=== PATIENT | female | born 1950 | race American Indian/Alaskan Native ===

== ENCOUNTER → 2017-05-30 | Outpatient (CLI) | payer OTHER ==
[~2017-05-30] MED LIST: AYGESTIN PO; CLON.5 PO; ESTRADIOL 0.05 MG/24 HR TOP; HYDCHL12.5 PO; OMEP20ER PO; PRAV20 PO
[2017-05-30 18:03] LABS: Protein, Urine Random 7.7 mg/dL (0.0-11.9)
== END | disposition home or self-care (01) ==
LOC: LAB SHORT 15:51 → OLS 15:51
PROVIDERS: Internal Medicine
DX: N18.3 Chronic kidney disease, stage 3 (moderate) (principal)
CPT/HCPCS: 82570; 84156

== ENCOUNTER → 2018-04-10 | Outpatient (CLI) | payer OTHER ==
[~2018-04-10] MED LIST changes: +ALBU90OI INH; +CLIMARA1 EACH; +Dyazide 37.5-21 EACH PO; +EXTRA STRENGTH500 MG PO; +LANS30EC PO; +Methimazole5 MG PO; +QVAR REDIHALE10.6 G1 INH; +SINUS PRESSURE-10 MG PO; +VITAMIN D22000 UNIT PO
[2018-04-12 14:12] LABS: HPV 16 Negative (Negative); HPV 18 Negative (Negative); HPV OTHER HR TYPES Negative (Negative)
== END | disposition home or self-care (01) ==
LOC: LAB 19:06 → LAB SHORT 19:06
PROVIDERS: Obstetrics & Gynecology Gynecology
DX: N89.8 Other specified noninflammatory disorders of vagina (principal); Z91.89 Other specified personal risk factors, not elsewhere classified
CPT/HCPCS: 87070; 87205; 87624; G0123

== ENCOUNTER 2018-05-02 12:44 | Day surgery (SDC) | payer OTHER ==
[~2018-05-02] VITALS: Ht 157.5 cm; Wt 73.1 kg
--- NOTE | 2018-05-02 13:34 | NUR ---
05/02/18 1334 Domitila Richardson 2 MISSED BY MA IV IN RH,RAC, VALVE 1 IN RH BY HESHAM BOUDREAUX;Leena N OT THREAD 1 LISA IV IN LW BY HESHAM BARBOSA TOW
--- NOTE | 2018-05-02 15:09 | NUR ---
05/02/18 1509 Jessica Juan V 6 CC OF SPOT USED TO [facility] LOCATION OF POLYP
== END 2018-05-02 15:40 | disposition home or self-care (01) ==
LOC: ORSCSDS 12:44
PROVIDERS: Surgery
PROC: 0DB68ZX Excision of Stomach, Via Natural or Artificial Opening Endoscopic, Diagnostic (ICD-10-PCS; principal; 2018-05-02 14:00)
PROC: 3E0H8GC Introduction of Other Therapeutic Substance into Lower GI, Via Natural or Artificial Opening Endoscopic (ICD-10-PCS; principal; 2018-05-02 14:00)
PROC: 0DBL8ZX Excision of Transverse Colon, Via Natural or Artificial Opening Endoscopic, Diagnostic (ICD-10-PCS; principal; 2018-05-02 14:00)
PROC: 0DBN8ZX Excision of Sigmoid Colon, Via Natural or Artificial Opening Endoscopic, Diagnostic (ICD-10-PCS; principal; 2018-05-02 14:00)
PROC: 0DB58ZX Excision of Esophagus, Via Natural or Artificial Opening Endoscopic, Diagnostic (ICD-10-PCS; principal; 2018-05-02 14:00)
DX: K21.9 Gastro-esophageal reflux disease without esophagitis (principal); Z86.010 Personal history of colon polyps; D12.3 Benign neoplasm of transverse colon; D12.5 Benign neoplasm of sigmoid colon; Z12.11 Encounter for screening for malignant neoplasm of colon; I10 Essential (primary) hypertension; E03.9 Hypothyroidism, unspecified; E16.2 Hypoglycemia, unspecified; J44.9 Chronic obstructive pulmonary disease, unspecified; F41.9 Anxiety disorder, unspecified; Z79.899 Other long term (current) drug therapy
CPT/HCPCS: 88305; 88342; J7120

== ENCOUNTER 2020-11-01 21:39 | Emergency (ER) | payer OTHER ==
[~2020-11-01] VITALS: Ht 160 cm; Wt 75.3 kg
== END 2020-11-02 02:18 | disposition home or self-care (01) ==
LOC: ER 21:39
DX: S16.1XXA Strain of muscle, fascia and tendon at neck level, initial encounter (principal); G89.29 Other chronic pain; M54.9 Dorsalgia, unspecified; Z88.8 Allergy status to other drugs, medicaments and biological substances; Z79.899 Other long term (current) drug therapy; V43.52XA Car driver injured in collision with other type car in traffic accident, initial encounter; Y92.488 Other paved roadways as the place of occurrence of the external cause
CPT/HCPCS: 70450; 72125; 96372; 99284-25; J1885

== ENCOUNTER → 2022-11-21 | Outpatient (CLI) | payer OTHER | LOC: LAB 12:00 → LAB SHORT 12:00 | DX: N39.0 Urinary tract infection, site not specified (principal) | CPT/HCPCS: 87086 ==